=== PATIENT | male | born 1935 | race Caucasian/White ===

== ENCOUNTER 2017-01-08 16:20 | Inpatient (IN) ==
[2017-01-08] MEDS ORDERED: Pantoprazole 40 MG VIAL IVP ONE (17:27)
[2017-01-08] MEDS ORDERED: 0.9 % Sodium Chloride 1,000 ML IVC ONE ×2 (17:27→17:30)
--- NOTE | 2017-01-08 17:35 | Emergency Department Note ---
Disposition Clinical Impression: Dehydration, Esophageal pain, History of esophageal cancer Disposition: Admitted As Inpatient Condition: Fair Time of Disposition: 19:35 General Adult HPI - General Chief complaint: ED Abdominal Pain Stated complaint: " Not eating or drinking x 3 days" Time Seen by Provider: 01/08/17 16:25 Source: patient Limitations: no limitations Nursing Notes Reviewed: Yes Vital Signs Reviewed: Yes - History of Present Illness HPI Narrative: Patient is 81-year-old male history of esophageal cancer with recent radiation therapy to his esophagus 3 months ago. Patient family states that patient has not felt like eating for the past 2 days and is required to take 4 cans of ECAL. Patient refusing nutrient intake secondary to esophageal discomfort. Patient's states that patient vomited black fluid earlier today. Patient received his medications to include iron pill which normally looks dark and discussed up into his PEG tube. Patient currently has dark fluid in his PEG tube believed to be possible coffee-ground emesis. Patient states that he has not any pain at this moment. Patient states that he does fine. Patient does have some difficulty hearing secondary to his hearing aid issues. Pain Scale: 5 - Related Data Home Medications Medication Instructions Recorded Confirmed Aspirin Enteric Coated [Aspirin EC] 81 mg PO DAILY 11/12/15 01/09/17 Calcium Carbonate 650 mg PO DAILY 11/12/15 01/09/17 Clopidogrel [Plavix] 75 mg PO DAILY 11/12/15 01/09/17 Finasteride [Proscar] 5 mg PO DAILY 11/12/15 01/09/17 PredniSONE [Fiona] 5 mg PO DAILY 11/12/15 01/09/17 traMADol [Ultram] 100 mg PO TID 11/12/15 01/09/17 Albuterol Neb [Proventil Neb] 2.5 mg IH TID 12/17/15 01/09/17 Bisacodyl [Dulcolax] 5 mg PO DAILY PRN 12/17/15 01/09/17 Omeprazole/Sodium Bicarbonate 1 pack PO DAILY 12/17/15 01/09/17 [Zegerid 20 mg Packet] Budesonide/Formoterol 160/4.5 2 puff IH BIDR 01/09/17 01/09/17 [Symbicort 160/4.5] Clopidogrel [Plavix] 75 mg PO DAILY 01/09/17 01/09/17 Diclofenac Sodium [Voltaren] 2 gm TP QID PRN 01/09/17 01/09/17 Ferrous Sulfate Oral Soln 220 mg PO BID 01/09/17 01/09/17 Ondansetron ODT [Zofran ODT] 4 mg SL Q8HR PRN 01/09/17 01/09/17 Simvastatin [Zocor] 20 mg PO HS 01/09/17 01/09/17 Tamsulosin [Flomax] 0.4 mg PO DAILY 01/09/17 01/09/17 Allergies Allergy/AdvReac Type Severity Reaction Status Date / Time No Known Allergies Allergy Verified 01/08/17 16:23 All systems ED: reviewed and negative except as stated. Review of Systems: As Per HPI Constitutional: Denies: fever, weakness ENT ED: Reports: dysphagia. Denies: congestion Gastrointestinal: Reports: hematemesis. Denies: melena, hematochezia Genitourinary: Denies: urgency, dysuria Musculoskeletal: Denies: back pain Integumentary: Denies: rash Neurological: Reports: confusion Past Medical History - Past Medical History Attestation: Yes The following information was validated with the patient. Source: patient, obtained from family Medical history: Reports: arthritis, cancer, COPD, coronary artery disease, GERD , hyperlipidemia, hypertension Surgical history: Reports: carotid endarterectomy Psychiatric history: Reports: no psych history - Social History Smoking Status: Former smoker Smokeless Tobacco Status: No Alcohol use: Reports: none Drug use: Reports: none Physical Exam - General Limitations: no limitations General appearance: alert, in no apparent distress - Head Head exam: atraumatic, normocephalic, normal inspection - Eye Eye exam: Present: normal appearance, PERRL, EOMI - ENT ENT exam: mucous membranes dry, normal external ear exam (Hearing aid in place) , other (Very dry oropharynx with dark discolored material on the hard and soft palates) - Neck Neck exam: Present: normal inspection, full ROM, trachea midline - Respiratory Respiratory exam: Present: normal lung sounds bilaterally. Absent: respiratory distress, wheezes - Cardiovascular Cardiovascular exam: Present: tachycardia - Abdominal Exam Abdominal exam: Present: soft, Non-Tender, other (PEG tube in place upper left quadrant of abdomen black fluid in tube). Absent: tenderness, distention, guarding, rebound, rigidity - Extremities Exam Extremities exam: Present: normal inspection, full ROM. Absent: tenderness, pedal edema - Back Exam Back exam: Present: normal inspection, full ROM. Absent: tenderness, CVA tenderness (R), CVA tenderness (L) - Neurological Exam Neurological exam: Present: alert, oriented X3 - Skin Skin exam: Present: warm, dry, intact, normal color Course - Reevaluation(s) Reevaluation #1: Labs ordered: CBC BMP and lactate, occult blood tests from gastric tube ordered Protonix IV bolus and drip ordered patient currently denies pain. 2 L normal saline ordered for dehydration Time: 17:27 Reevaluation #2: Patient's heart rate coming down after 1 L IV normal saline. Patient's family states patient interactions are improving. Patient looks and appears more alert Time: 18:00 Reevaluation #3: Patient currently awaiting results of remaining labs and disposition. Patient' s care will be handed over to [employer] night crew. Dr. Power and Dr. Moon. SBAR has been given Dr. Power. Dr. Power understands and accepts care for patient. Patient currently continues to improve with IV rehydration. Discussion at bedside round with family has to consider admission to continue care get patient back on track with nutrition. Patient's family and patient understand and agrees to treatment plan Time: 18:55 - Consultations Consultation #1: Dr. Scott the hospitalist accepted the patient for admission Time: 19:35 Vital Signs Temperature 97.3 F L 01/08/17 16:24 Pulse Rate 122 01/08/17 16:24 Respiratory Rate 25 01/08/17 16:24 Blood Pressure 110/73 01/08/17 16:24 O2 Sat by Pulse Oximetry 94 01/08/17 16:24 Temperature 97.8 F 01/10/17 11:10 Pulse Rate 105 01/10/17 11:10 Respiratory Rate 17 01/10/17 11:10 Blood Pressure 120/70 01/10/17 11:10 O2 Sat by Pulse Oximetry 96 01/10/17 11:10 Oxygen Delivery Oxygen Delivery Room Air Medical Decision Making - MDM Narrative Medical decision making narrative: Patient has been admitted to continue rehydration and receive further treatment concerning patient's nutritional deficiencies, an investigation into patient's possible GI bleeding. Patient is currently doing well. Vitals normalizing. Awaiting analysis the patient's gastric tube fluid. Patient's cardiac enzymes have not been resulted as yet. Chest x-ray shows mild bibasilar interstitial edema That EKG does not show any signs of ischemia. Patient in the ED awaiting bed assignment. - Lab Data Lab results reviewed: Yes I reviewed the patient's lab results. Lab results narrative: Short CBC 01/08/17 Range/Units 17:45 WBC 13.7 H (4.3-11.1) K/mcL Hgb 14.2 (12.9-16.9) g/dL Hct 43.3 (37.5-50.1) % Plt Count 239 (140-400) K/mcL Neutrophils # 11.9 H (1.6-8.9) K/mcL BMP 01/08/17 Range/Units 17:45 Sodium 136 (136-145) mEq/L Potassium 4.3 (3.5-4.5) mEq/L Chloride 104 (98-109) mEq/L Carbon Dioxide 24 (19-29) mEq/L BUN 26 (8-26) mg/dL Creatinine 0.83 (0.72-1.25) mg/dL Glucose 115 H (70-99) mg/dL Calcium 8.9 (8.6-10.8) mg/dL Cardiac Enzymes 01/08/17 Range/Units 22:35 Troponin I 0.05 H* (0-0.03) ng/mL Result diagrams: 01/10/17 05:24 01/10/17 05:24 Lab Results 01/08/17 01/08/17 01/08/17 Range/Units 17:45 17:45 17:45 WBC 13.7 H (4.3-11.1) K/mcL RBC 4.87 (4.19-5.50) M/mcL Hgb 14.2 (12.9-16.9) g/dL Hct 43.3 (37.5-50.1) % MCV 88.9 (83.0-100.0) fL MCH 29.2 (28.0-33.3) pg MCHC 32.8 (31.6-35.5) g/dL RDW 14.2 (11.5-14.5) % Plt Count 239 (140-400) K/mcL MPV 10.8 (9.4-12.4) fL Immature Gran % 0.4 (0-4) % Seg Neutrophils % 86.7 % Lymphocytes % 5.8 % Monocytes % 6.6 % Eosinophils % 0.2 % Basophils % 0.3 % Neutrophils # 11.9 H (1.6-8.9) K/mcL Lymphocytes # 0.8 (0.6-4.6) K/mcL Monocytes # 0.9 (0.0-1.3) K/mcL Eosinophils # 0.0 (0.0-0.6) K/mcL Basophils # 0.0 (0.0-0.2) K/mcL Sodium 136 (136-145) mEq/L Potassium 4.3 (3.5-4.5) mEq/L Chloride 104 (98-109) mEq/L Carbon Dioxide 24 (19-29) mEq/L BUN 26 (8-26) mg/dL Creatinine 0.83 (0.72-1.25) mg/dL Est GFR ( Amer) > 60 (> 60) Est GFR (Non-Af Amer) > 60 (> 60) BUN/Creatinine Ratio 31 H (6-26) Glucose 115 H (70-99) mg/dL Calculated Osmolality 288 (280-300) Calcium 8.9 (8.6-10.8) mg/dL Troponin I (0-0.03) ng/mL Blood Type B POSITIVE Antibody Screen NEGATIVE 01/08/17 Range/Units 22:35 WBC (4.3-11.1) K/mcL RBC (4.19-5.50) M/mcL Hgb (12.9-16.9) g/dL Hct (37.5-50.1) % MCV (83.0-100.0) fL MCH (28.0-33.3) pg MCHC (31.6-35.5) g/dL RDW (11.5-14.5) % Plt Count (140-400) K/mcL MPV (9.4-12.4) fL Immature Gran % (0-4) % Seg Neutrophils % % Lymphocytes % % Monocytes % % Eosinophils % % Basophils % % Neutrophils # (1.6-8.9) K/mcL Lymphocytes # (0.6-4.6) K/mcL Monocytes # (0.0-1.3) K/mcL Eosinophils # (0.0-0.6) K/mcL Basophils # (0.0-0.2) K/mcL Sodium (136-145) mEq/L Potassium (3.5-4.5) mEq/L Chloride (98-109) mEq/L Carbon Dioxide (19-29) mEq/L BUN (8-26) mg/dL Creatinine (0.72-1.25) mg/dL Est GFR ( Amer) (> 60) Est GFR (Non-Af Amer) (> 60) BUN/Creatinine Ratio (6-26) Glucose (70-99) mg/dL Calculated Osmolality (280-300) Calcium (8.6-10.8) mg/dL Troponin I 0.05 H* (0-0.03) ng/mL Blood Type Antibody Screen - Radiology Data Radiology results reviewed: Yes I reviewed the patient's radiology results. Chest X-Ray 01/08/17 17:27 IMPRESSION: Possible mild bibasilar interstitial edema. D/ / Devang Gutierrez MD / Devang Gutierrez MD Interpreting Provider: Devang Gutierrez MD - EKG Data EKG #1 EKG attestation: Yes I reviewed and interpreted this EKG. EKG results narrative: EKG taken for January 2017 1854 hrs. shows a sinus tachycardia at a rate of 103 bpm with occasional supraventricular premature complexes noted acute ST elevations or depressions may leads no S1Q3 T3, no Brugada no Wellens no [place]. S.B.A.R. - S.B.A.R. Situation: Demographics, MOA Background: Presenting Complaint, Relevant PMH, Meds, & Allergies Assessment: Vital Signs, Course and respsone to treatment, Exam Concerns, Patient/Family Expectation, Pertinant Lab Results, Outstanding Labs Recommendation: Barrier(s) to disposition, Recommendation based on pending studies, treatments, or consults S.B.A.R. Report Given to: Dr. Ruben Lynch Repor Time: 18:55 Attestation Statement - Attestation Attestation: I examined this patient and my medical decision-making was reviewed with the Resident Physician. I agree with the documented findings, disposition and treatment plan as described.
[2017-01-08 17:52] LABS: Basophils % 0.3 %; Eosinophils % 0.2 %; Hematocrit 43.3 % (37.5-50.1); Hemoglobin 14.2 g/dL (12.9-16.9); Immature Granulocytes % 0.4 % (0-4); Lymphocytes # 0.8 K/mcL (0.6-4.6); Lymphocytes % 5.8 %; Mean Corpuscular HGB Conc 32.8 g/dL (31.6-35.5); Mean Corpuscular Hemoglobin 29.2 pg (28.0-33.3); Mean Corpuscular Volume 88.9 fL (83.0-100.0); Mean Platelet Volume 10.8 fL (9.4-12.4); Monocytes # 0.9 K/mcL (0.0-1.3); Monocytes % 6.6 %; Neutrophils # 11.9 K/mcL (1.6-8.9); Platelet Count 239 K/mcL (140-400); Red Blood Count 4.87 M/mcL (4.19-5.50); Red Cell Distribution Width 14.2 % (11.5-14.5); Segmented Neutrophils % 86.7 %
[2017-01-08 18:04] LABS: BUN/Creatinine Ratio 31 (6-26); Blood Urea Nitrogen 26 mg/dL (8-26); Calcium 8.9 mg/dL (8.6-10.8); Carbon Dioxide 24 mEq/L (19-29); Chloride 104 mEq/L (98-109); Glucose 115 mg/dL (70-99); Osmolality,Calculated 288 (280-300); Potassium 4.3 mEq/L (3.5-4.5); Sodium 136 mEq/L (136-145); eGFR For African Americans > 60 (> 60); eGFR For Non-African Americans > 60 (> 60)
[2017-01-08] MEDS: Pantoprazole 40 MG in 0.9 % Sodium Chloride Mini Bag 100 ML IVC SCH ×2 (18:05→23:50)
[2017-01-08] MEDS ORDERED: Ondansetron 4 MG/2 ML VIAL IVP PRN (21:55)
[2017-01-08] MEDS ORDERED: Albuterol 2.5 MG/3 ML NEBULIZER IH PRN (21:55)
[2017-01-08] MEDS ORDERED: Acetaminophen 325 MG TABLET PO PRN (21:57)
[2017-01-08] MEDS ORDERED: Naloxone 0.4 MG/ML INJ IVP PRN (21:57)
[2017-01-08] MEDS ORDERED: MOM Conc 10 ML UD.LIQ PO PRN (21:57)
[2017-01-08] MEDS ORDERED: Nystatin SUSP 5 ML UD.LIQ PO SCH (22:00)
--- NOTE | 2017-01-08 22:06 | Internal Med History&Physical ---
Date of Encounter: 01/09/17 Time of Encounter: 22:04 Assessment and Plan (1) Odynophagia Current visit: Yes Status: Acute Patient had radiation therapy for his esophageal cancer. He is unable to swallow. However he does have bacterial. Suspicion for radiation esophagitis. Patient is on supportive treatment and will put a consult for gastroenterology in the morning team has to call business travel consultant at appropriate time. IV proton started (2) GI bleed Current visit: Yes Status: Acute Bacteria showed coffee-ground fluid however it was not Hemoccult tested in the ER I will order Hemoccult and check his hemoglobin in the morning. He is on IV Protonix and will remain nothing by mouth. Qualifiers: GI bleed type/associated pathology: unspecified gastrointestinal hemorrhage type Qualified Code(s): K92.2 - Gastrointestinal hemorrhage, unspecified (3) Bilateral pneumonia Current visit: Yes Status: Acute Chest x-ray shows bilateral infiltrates however seemed quite inconspicuous secondary to dehydration. White count is mildly elevated. It could be a chronic finding or may be related to his radiation treatment to esophageal cancer. At this time blood culture obtained and Zosyn will be started. It has to be reassess by the [facility] Qualifiers: Pneumonia type: due to unspecified organism Lung location: lower lobe of lung Qualified Code(s): J18.9 - Pneumonia, unspecified organism (4) Dehydration Current visit: Yes Status: Acute IV fluid 100 mL per hour was started (5) Altered mental status Current visit: Yes Status: Acute Perhaps related to dehydration and pneumonia. Will check CT head to rule out bleed as family is quite concerned. Qualifiers: Qualified Code(s): R41.82 - Altered mental status, unspecified (6) Esophageal cancer Current visit: Yes Status: Acute History of esophageal cancer and recent radiation treatment last 3 months the plan per oncology Qualifiers: Malignant neoplasm of esophagus location: unspecified location Qualified Code(s): C15.9 - Malignant neoplasm of esophagus, unspecified (7) COPD (chronic obstructive pulmonary disease) Current visit: Yes Status: Acute DuoNeb started as well as Mucinex Qualifiers: COPD type: emphysema Emphysema type: unspecified Qualified Code(s): J43.9 - Emphysema, unspecified (8) Hypertension Current visit: Yes Status: Acute Resume medication and daily monitoring Qualifiers: Hypertension type: essential hypertension Qualified Code(s): I10 - Essential (primary) hypertension (9) Dyslipidemia Current visit: Yes Status: Acute Resume home medication (10) GERD (gastroesophageal reflux disease) Current visit: Yes Status: Acute IV Protonix is started Qualifiers: Esophagitis presence: esophagitis presence not specified Qualified Code(s) : K21.9 - Gastro-esophageal reflux disease without esophagitis (11) Coronary artery disease Current visit: Yes Status: Acute Continue home medication at this time quite stable not complaining of chest pain Qualifiers: Coronary Disease-Associated Artery/Lesion type: [place] artery [place] vs. transplanted heart: [place] heart Associated angina: without angina Qualified Code(s): I25.10 - Atherosclerotic heart disease of [place] coronary artery without angina pectoris Internal Medicine - H&P: HPI Chief complaint: Altered mental status Admitted From: Home Plans for Post Hospital Care: Home History of present illness: Mr. Garcia is a 81 year old male with past medical history of esophageal cancer with recent radiation therapy to his esophagus 3 months ago. Patient family states that patient has not felt like eating for the past 2 days and is required to take 4 cans of ECAL daily but he has taken only 2 cans.. Patient would indicate that it hurts in his chest. Patient's states that patient vomited black fluid earlier today. Patient received his medications to include iron pill which normally looks dark. Patient currently has dark fluid in his PEG tube believed to be possible coffee-ground emesis. Patient states that he has not any pain at this moment. Patient states that he does fine. Patient does have some difficulty hearing secondary to his hearing aid issues. He does appear quite confused. However he moves his extremities well. He denies any abdominal pain. Past Med Surg Social Fam HX - Past Medical History Medical history: arthritis, cancer, COPD, coronary artery disease, GERD, hyperlipidemia, hypertension, other Psychiatric history: no psych history - Past Surgical History Surgical History: carotid endarterectomy - Social History Smoking Status: Former smoker Smokeless Tobacco Status: No Alcohol use: none Drug use: none Internal Medicine - H&P: Meds Aspirin Enteric Coated [Aspirin EC] 81 mg PO DAILY 11/12/15 [History] Calcium Carbonate 650 mg PO DAILY 11/12/15 [History] Clopidogrel [Plavix] 75 mg PO DAILY 11/12/15 [History] Codeine Harvinder/Chlorphenir Polis [Tuzistra Xr 14.7-2.8 mg/5 ml] 5 ml PO TID [History] Ergocalciferol (VITAMIN D2) [Vitamin D] 800 unit PO DAILY 11/12/15 [History] Finasteride [Proscar] 5 mg PO DAILY 11/12/15 [History] Fluticasone Propionate Nasal [Flonase] 1 spray NS DAILY 11/12/15 [History] Lisinopril [Zestril] 40 mg PO DAILY 11/12/15 [History] Methocarbamol [Robaxin] 750 mg PO Q4H 11/12/15 [History] Nystatin [Nystatin Suspension] 10 ml PO QID 11/12/15 [History] PredniSONE [Fiona] 5 mg PO DAILY 11/12/15 [History] Prochlorperazine Maleate [Compazine] 10 mg PO BID PRN 11/12/15 [History] Simvastatin [Zocor] 80 mg PO QPM 11/12/15 [History] traMADol [Ultram] 50 mg PO TID 11/12/15 [History] Albuterol Neb [Proventil Neb] 2.5 mg IH TID 12/17/15 [History] Bisacodyl [Dulcolax] 5 mg PO DAILY PRN 12/17/15 [History] Ergocalciferol (VITAMIN D2) [Vitamin D2 (50,000 UNIT)] 50,000 unit PO QWEEK 04/21 [History] Omeprazole/Sodium Bicarbonate [Zegerid 20 mg Packet] 1 pack PO DAILY 12/17/15 [ History] Terazosin [Hytrin] 5 mg PO HS 12/17/15 [History] 3 Allergy/AdvReac Type Severity Reaction Status Date / Time No Known Allergies Allergy Verified 01/08/17 16:23 All Systems PM: A 10-system review of systems was performed and is negative for pertinent findings except as documented above in the HPI. - Constitutional Constitutional: no chills, no fever(s), no night sweats - EENT Eyes: no change in vision, no discharge, no pain, no photophobia Ears: no ear discharge, no ear pain, no tinnitus Nose, mouth and throat: no dysphagia, no nasal discharge, no neck pain, no sore throat - Cardiovascular Cardiovascular ROS IM: no chest pain, no diaphoresis, no dyspnea, no lightheadedness, no palpitations, no syncope - Respiratory Respiratory: no cough, no dyspnea, no wheezing, no excessive phlegm production - Gastrointestinal Gastrointestinal: hematemesis, odynophagia, no abdominal pain, no diarrhea, no hematochezia, no melena, no nausea, no vomiting - Musculoskeletal Musculoskeletal ROS IM: no numbness, no tingling - Integumentary Integumentary IM: no rash, no unusual bruising - Neurological Neurological ROS: confusion, no convulsions, no focal weakness, no numbness, no tingling, no tremor(s) - Hematologic/Lymphatic Hematologic/Lymphatic: no easy bruising - Constitutional Vitals: Temp Pulse Resp BP Pulse Ox 97.8 F 102 18 125/72 98 01/08/17 21:31 01/08/17 21:31 01/08/17 21:31 01/08/17 21:31 01/08/17 21:31 General appearance: Present: A&O X 1, no acute distress - Head Head exam: Present: atraumatic, normocephalic - Eye Eye exam: Present: PERRL, conjuntiva pink, sclera anicteric Pupils: Present: PERRL - Neck Neck exam general surgery: Present: supple, trachea midline. Absent: lymphadenopathy - Respiratory Respiratory exam: Present: CTAB. Absent: accessory muscle use, rales, rhonchi, wheezes - Cardiovascular Cardiovascular exam: Present: RRR, +S1, +S2. Absent: diastolic murmur, gallop, rubs, systolic murmur - GI/Abdominal GI/Abdominal exam: Present: normal bowel sounds, soft, tenderness, no peritoneal signs. Absent: distended - Extremities Exam Extremities exam: Present: warm, radial pulses palpable and symmetrical. Absent : calf tenderness, cyanotic, pedal edema - Neurological Exam Neurological exam: Absent: pronater drift, facial droop, speech deficit Additional comments: Patient appeared confused however he is moving all 4 extremities and able to, talk - Skin Skin exam: Present: dry, intact Internal Med - H&P Results - Labs CBC & Chem 7: 01/08/17 17:45 01/08/17 17:45
[2017-01-08] MEDS: Ipratropium/Albuterol Neb 3 ML IH SCH (23:20)
[2017-01-08] MEDS: 0.9 % Sodium Chloride 1,000 ML IVC SCH (23:46)
[2017-01-08] MEDS: Piperacillin/Tazobactam 3.375 GM in D5% in Water (Mini-Bag+) 100 ML IVPB SCH (23:47)
[2017-01-09] MEDS: Fluticasone Propionate Nasal 50 MCG/SPRAY BOTTLE NS SCH ×2 (00:20→10:24)
[2017-01-09] MEDS ORDERED: Docusate Oral Soln 100 MG/10 ML UDC GTUBE PRN (01:43)
[2017-01-09] MEDS ORDERED: MOM Conc 10 ML UD.LIQ GTUBE PRN (01:45)
[2017-01-09] MEDS ORDERED: *HR* LORazepam 2 MG/ML VIAL IVP ONE (05:18)
[2017-01-09] MEDS: Ipratropium/Albuterol Neb 3 ML IH SCH ×4 (05:42→22:29)
[2017-01-09] MEDS: Pantoprazole 40 MG in 0.9 % Sodium Chloride Mini Bag 100 ML IVC SCH ×2 (06:39→08:26)
[2017-01-09] MEDS: Piperacillin/Tazobactam 3.375 GM in D5% in Water (Mini-Bag+) 100 ML IVPB SCH ×2 (08:15→16:44)
[2017-01-09] MEDS ORDERED: CHLORPHENIRAMINE PO SCH (09:00)
[2017-01-09] MEDS ORDERED: [UNRECOGNIZED DRUG - OTHER] PO SCH (09:00)
[2017-01-09] MEDS: Nystatin SUSP 5 ML UD.LIQ GTUBE SCH ×4 (10:22→21:41)
[2017-01-09] MEDS: GuaiFENesin Liq 200 MG/10 ML UDC GTUBE SCH ×2 (10:23→21:41)
[2017-01-09] MEDS: Cholecalciferol (D-3) 1,000 UNIT TABLET PO SCH (10:23)
[2017-01-09] MEDS: Finasteride 5 MG TABLET PO SCH (10:23)
[2017-01-09] MEDS: Lisinopril 20 MG TABLET GTUBE SCH (10:23)
[2017-01-09] MEDS: predniSONE 5 MG TABLET GTUBE SCH (10:23)
[2017-01-09] MEDS: 0.9 % Sodium Chloride 1,000 ML IVC SCH ×2 (12:55→22:34)
--- NOTE | 2017-01-09 15:34 | Internal Med Progress Note ---
Date of Encounter: 01/09/17 Time of Encounter: 15:33 - Assessment and plan (1) GI bleed Current Visit: Yes Status: Acute Assessment and plan: mostly upper GI bleed Improving cont close monitoring of Hb He refused morning labs Consulted GI for further eval -- possible EGD Con Protonix 40mg IV BID for now Con strict NPO Qualifiers: GI bleed type/associated pathology: unspecified gastrointestinal hemorrhage type Qualified Code(s): K92.2 - Gastrointestinal hemorrhage, unspecified (2) Bilateral pneumonia Current Visit: Yes Status: Acute Assessment and plan: Reviewed his CXR - showing patchy infiltrates b/l mostly aspiration pneumonia strict aspiration precautions cont empirical abx with Zosyn for now Duoneb PRN Qualifiers: Pneumonia type: due to unspecified organism Lung location: lower lobe of lung Qualified Code(s): J18.9 - Pneumonia, unspecified organism (3) Altered mental status Current Visit: Yes Status: Acute Assessment and plan: multi factorial - due to PNA , Dehydration and GI bleed Also concerned for worsening dementia too reviewed CT of head - no acute changes Con close monitoring for now avoid BZD will give him Haldol PRN for agitation started him on seroquel Qualifiers: Qualified Code(s): R41.82 - Altered mental status, unspecified (4) Esophageal cancer Current Visit: Yes Status: Acute Assessment and plan: s/p radiation therapy cont close monitoring for now GI on board.. possible EGD later Qualifiers: Malignant neoplasm of esophagus location: unspecified location Qualified Code(s): C15.9 - Malignant neoplasm of esophagus, unspecified (5) COPD (chronic obstructive pulmonary disease) Current Visit: Yes Status: Chronic Assessment and plan: not in exacerbation resumed home meds Qualifiers: COPD type: emphysema Emphysema type: unspecified Qualified Code(s): J43.9 - Emphysema, unspecified (6) Hypertension Current Visit: Yes Status: Acute Assessment and plan: stale with home meds Qualifiers: Hypertension type: essential hypertension Qualified Code(s): I10 - Essential (primary) hypertension (7) GERD (gastroesophageal reflux disease) Current Visit: Yes Status: Acute Qualifiers: Esophagitis presence: esophagitis presence not specified Qualified Code(s) : K21.9 - Gastro-esophageal reflux disease without esophagitis (8) Coronary artery disease Current Visit: Yes Status: Acute Assessment and plan: on PPI Qualifiers: Coronary Disease-Associated Artery/Lesion type: [place] artery [place] vs. transplanted heart: [place] heart Associated angina: without angina Qualified Code(s): I25.10 - Atherosclerotic heart disease of [place] coronary artery without angina pectoris - Subjective Interval history: Mr. Garcia is a 81 year old male with past medical history of esophageal cancer with recent radiation therapy to his esophagus 3 months ago. Patient family states that patient has not felt like eating for the past 2 days and is required to take 4 cans of ECAL daily but he has taken only 2 cans.. Patient would indicate that it hurts in his chest. Patient's states that patient vomited black fluid earlier today. Patient received his medications to include iron pill which normally looks dark. Patient currently has dark fluid in his PEG tube believed to be possible coffee-ground emesis. Pt is more alert, awake and Oriented to self now. Following all the commands. No more hematemesis noticed.. Denied any CP / SOB / Abd pain. - Constitutional Vitals: Temp Pulse Resp BP Pulse Ox 97.7 F 90 17 125/74 98 01/09/17 14:50 01/09/17 14:50 01/09/17 14:50 01/09/17 14:50 01/09/17 14:50 General appearance: Present: A&O X 1, no acute distress - Head Head exam: Present: atraumatic, normal inspection - Respiratory Respiratory exam: Present: decreased breath sounds, wheezes. Absent: rales, respiratory distress, rhonchi - Cardiovascular Cardiovascular exam: Present: RRR, +S1, +S2. Absent: diastolic murmur, gallop, rubs, systolic murmur - GI/Abdominal GI/Abdominal exam: Present: normal bowel sounds, soft. Absent: distended, rebound, rigid, tenderness Additional comments: PEG tube + LUQ region - Extremities Exam Extremities exam: Absent: calf tenderness, pedal edema, tenderness - Neurological Exam Neurological exam: Present: alert, altered - Psychiatric Psychiatric exam: Present: anxious Internal Medicine: Result - Labs CBC & Chem 7: 01/08/17 17:45 01/08/17 17:45 - Impressions Impressions Head CT 01/09/17 12:00 IMPRESSION: Nonspecific findings suggesting chronic ischemic and senescent change, but no CT evidence for acute intracranial process. D/ / Victorino Beckett / Victorino Beckett Interpreting Provider: Victorino Beckett Consult Discharge Plan - Plan [facility]errals: [facility]Primary Care Provider[facility] -
[2017-01-09] MEDS ORDERED: Haloperidol Oral Conc 10 MG/5 ML UDC GTUBE PRN (15:42)
--- NOTE | 2017-01-09 17:56 | Gastroenterology Consult Note ---
Date of Encounter: 01/09/17 Time of Encounter: 16:00 - Time Spent With Patient Total time spent is greater than 50% in coordination of care (as documented) at patient's floor/unit and/or counseling patient: GI History of Present Illness - Data of Consult Requesting Physician: Noman June MD - Consult Narrative Reason for consult: DYSPHAGIA, ESOPHAGEAL CANCER History of present illness: Mr. Garcia is a 81 year old male who presents with dysphagia and dehydration. Patient is a very poor historian and I am unable to reach his daughter, Urmila. He has been diagnosed with adenocarcinoma of the esophagus and am not able to verify any further information. Will request records from the institution where he was diagnosed and managed so far. Further recommendations post review of that as well as after conversing with his daughter, Urmila Past Med Surg Social Fam HX - Past Medical History Medical history: arthritis, cancer, COPD, coronary artery disease, GERD, hyperlipidemia, hypertension Psychiatric history: no psych history - Past Surgical History Surgical History: carotid endarterectomy - Social History Smoking Status: Former smoker Smokeless Tobacco Status: No Alcohol use: none Drug use: none ROS unobtainable: due to mental status - Constitutional Vitals: Temp Pulse Resp BP Pulse Ox 97.7 F 90 12 125/74 97 01/09/17 14:50 01/09/17 14:50 01/09/17 15:48 01/09/17 14:50 01/09/17 15:48 General appearance: Present: cachectic, A&O X 2 - Head Head exam: Present: atraumatic, normocephalic - Neurological Exam Neurological exam: Present: alert, no focal deficits - Psychiatric Psychiatric exam: Present: depressed, normal affect, normal mood Results - Labs CBC & Chem 7: 01/11/17 04:40 01/11/17 04:40 Labs: Last Result Calcium 8.9 mg/dL (8.6-10.8) 01/08/17 17:45 Troponin I 0.05 ng/mL (0-0.03) H* 01/08/17 22:35 Gastric Occult Blood Positive (Negative) A 01/09/17 00:05 Entire Visit Hgb 14.2 g/dL (12.9-16.9) 01/08/17 17:45 Hct 43.3 % (37.5-50.1) 01/08/17 17:45 - Impressions Impressions Head CT 01/09/17 12:00 IMPRESSION: Nonspecific findings suggesting chronic ischemic and senescent change, but no CT evidence for acute intracranial process. D/ / Victorino Beckett / Victorino Beckett Interpreting Provider: Victorino Beckett Consult Discharge Plan - Plan Additional Instructions: Need to f/u with PCP in one week Need to f/u GI Dr. Sanchez in 1-2 weeks Cont tube feedings as before boluses 4 times a day Referrals: [facility] [Outside] Anastacia Sanchez MD [Partnered Physician] - Prescriptions: Amoxicillin/Clavulanate [Augmentin] 875 mg PO BIDWM 4 Days
[2017-01-09] MEDS: Pantoprazole 40 MG VIAL IVP SCH (18:38)
[2017-01-10] MEDS: Piperacillin/Tazobactam 3.375 GM in D5% in Water (Mini-Bag+) 100 ML IVPB SCH ×4 (00:03→23:51)
[2017-01-10] MEDS: Ipratropium/Albuterol Neb 3 ML IH SCH ×2 (05:06→10:59)
[2017-01-10] MEDS: Pantoprazole 40 MG VIAL IVP SCH ×2 (05:37→17:32)
[2017-01-10 05:51] LABS: Basophils % 0.5 %; Eosinophils # 0.1 K/mcL (0.0-0.6); Eosinophils % 2.2 %; Hematocrit 31.6 % (37.5-50.1); Immature Granulocytes % 0.3 % (0-4); Lymphocytes % 19.2 %; Mean Corpuscular HGB Conc 32.6 g/dL (31.6-35.5); Mean Corpuscular Hemoglobin 29.1 pg (28.0-33.3); Mean Corpuscular Volume 89.3 fL (83.0-100.0); Mean Platelet Volume 10.8 fL (9.4-12.4); Monocytes # 0.6 K/mcL (0.0-1.3); Monocytes % 8.7 %; Neutrophils # 4.5 K/mcL (1.6-8.9); Platelet Count 152 K/mcL (140-400); Red Blood Count 3.54 M/mcL (4.19-5.50); Red Cell Distribution Width 14.4 % (11.5-14.5); Segmented Neutrophils % 69.1 %
[2017-01-10 05:57] LABS: Hemoglobin 10.3 g/dL (12.9-16.9); Lymphocytes # 1.3 K/mcL (0.6-4.6)
[2017-01-10 06:00] LABS: BUN/Creatinine Ratio 18 (6-26); Carbon Dioxide 23 mEq/L (19-29); Chloride 108 mEq/L (98-109); Glucose 91 mg/dL (70-99); Magnesium 1.5 mg/dL (1.6-2.6); Osmolality,Calculated 284 (280-300); Potassium 3.5 mEq/L (3.5-4.5); Sodium 137 mEq/L (136-145); eGFR For African Americans > 60 (> 60); eGFR For Non-African Americans > 60 (> 60)
[2017-01-10 06:01] LABS: Blood Urea Nitrogen 13 mg/dL (8-26)
[2017-01-10] MEDS: Nystatin SUSP 5 ML UD.LIQ GTUBE SCH ×4 (08:42→21:36)
[2017-01-10] MEDS: Finasteride 5 MG TABLET PO SCH (08:42)
[2017-01-10] MEDS: GuaiFENesin Liq 200 MG/10 ML UDC GTUBE SCH ×2 (08:42→21:39)
[2017-01-10] MEDS: Cholecalciferol (D-3) 1,000 UNIT TABLET PO SCH (08:42)
[2017-01-10] MEDS: Lisinopril 20 MG TABLET GTUBE SCH (08:42)
[2017-01-10] MEDS: predniSONE 5 MG TABLET GTUBE SCH (08:42)
[2017-01-10] MEDS: 0.9 % Sodium Chloride 1,000 ML IVC SCH ×2 (09:01→19:28)
[2017-01-10] MEDS ORDERED: Ipratropium/Albuterol Neb 3 ML IH PRN (11:10)
[2017-01-10] MEDS: Fluticasone Propionate Nasal 50 MCG/SPRAY BOTTLE NS SCH (11:24)
--- NOTE | 2017-01-10 12:05 | Gastroenterology Consult Note ---
<Jayesh Vyas - Last Filed: 01/10/17 12:03> Date of Encounter: 01/10/17 Time of Encounter: 11:00 - Assessment and plan (1) Odynophagia Current Visit: Yes Status: Acute Assessment and plan: Plan for EGD tomorrow to r/o esophagitis, gastritis, duodenitis, PUD, MW tear, or AVM. Keep NPO at midnight. (2) GI bleed Current Visit: Yes Status: Acute Assessment and plan: Continue to monitor CBC and transfuse PRBC as needed. EGD tomorrow to r/o esophagitis, gastritis, duodenitis, PUD, MW tear, or AVM. Qualifiers: GI bleed type/associated pathology: unspecified gastrointestinal hemorrhage type Qualified Code(s): K92.2 - Gastrointestinal hemorrhage, unspecified (3) Esophageal cancer Current Visit: Yes Status: Acute Qualifiers: Malignant neoplasm of esophagus location: unspecified location Qualified Code(s): C15.9 - Malignant neoplasm of esophagus, unspecified (4) Esophageal pain Current Visit: Yes Status: Acute Assessment and plan: Secondary to esophageal cancer - Time Spent With Patient Total time spent is greater than 50% in coordination of care (as documented) at patient's floor/unit and/or counseling patient: GI History of Present Illness - Data of Consult Patient: known to practice within the last 3 years Consult date: 01/10/17 Requesting Physician: Noman June MD - Consult Narrative Reason for consult: Dysphagia, hematemesis, history of esophageal cancer History of present illness: Mr. Garcia is a 81 year old male with PMHx of esophageal cancer with radiation therapy to his esophagus 3 months, COPD, CAD, GERD, HLD, HTN. Patient family states that patient has not felt like eating for the past 2 days and is required to take 4 cans of ECAL but has only taken 2 cans. Patient refusing nutrient intake secondary to esophageal discomfort. Patient's states that patient vomited black fluid prior to admission. Patient received his medications which included an iron pill which normally looks dark. Patient currently has dark fluid in his PEG tube believed to be possible coffee-ground emesis. Procedure: EGD 08/11/2016 Dr. Harvey: With the large fungating, partially obstructing mass in the lower third of the esophagus. PEG tube placed. EGD 12/17/2015 Dr. Mooney: Malignant appearing esophageal stenosis, intact G- tube. EGD 11/22/2015 Dr. Mooney: Nonbleeding esophageal ulcers, malignant appearing esophageal stenosis. NSAIDs: ASA Anticoagulation: Plavix Past Med Surg Social Fam HX - Past Medical History Medical history: arthritis, cancer, COPD, coronary artery disease, GERD, hyperlipidemia, hypertension Psychiatric history: no psych history - Past Surgical History Surgical History: carotid endarterectomy - Social History Smoking Status: Former smoker Smokeless Tobacco Status: No Alcohol use: none Drug use: none - Gastrointestinal Gastrointestinal: Present: as per HPI - Constitutional Constitutional: as per HPI - EENT Eyes: as per HPI Ears: Present: as per HPI Nose, mouth and throat: Present: as per HPI - Cardiovascular Cardiovascular ROS: Present: as per HPI - Respiratory Respiratory IM: Present: as per HPI - Genitourinary Genitourinary: Absent: change in color, Urinary frequency - Neurological ROS Neurological GI: Present: as per HPI - Hematologic/Lymphatic Hematologic/Lymphatic pediatric: Present: as per HPI - Musculoskeletal Musculoskeletal ROS GI: Present: as per HPI - Integumentary Integumentary GI: Present: as per HPI - Psychiatric ROS Psychiatric GI: Present: as per HPI - Endocrine Endocrine IM: Present: as per HPI - Constitutional Vitals: Temp Pulse Resp BP Pulse Ox 97.8 F 105 17 120/70 96 01/10/17 11:10 01/10/17 11:10 01/10/17 11:10 01/10/17 11:10 01/10/17 11:10 General appearance: Present: cooperative, A&O X 3, no acute distress, answers questions appropriately - Head Head exam: Present: atraumatic, normocephalic - Eye Eye exam: Present: normal appearance, sclera anicteric - ENT ENT exam: Present: mucous membranes dry - Neck Neck exam general surgery: Present: normal inspection, trachea midline - Respiratory Respiratory exam: Present: decreased breath sounds, wheezes - Cardiovascular Cardiovascular exam: Present: RRR, +S1, +S2 - GI/Abdominal GI/Abdominal exam: Present: soft, no peritoneal signs. Absent: distended, firm , guarding, tenderness Additional comments: PEG tube in place - Rectal Rectal exam: Present: deferred - Extremities Exam Extremities exam: Present: warm - Neurological Exam Neurological exam: Present: no focal deficits - Psychiatric Psychiatric exam: Present: normal affect, normal mood - Skin Skin exam: Present: dry, intact, normal color, warm Results - Labs CBC & Chem 7: 01/10/17 05:24 01/10/17 05:24 Labs: Last Result Calcium 8.0 mg/dL (8.6-10.8) L 01/10/17 05:24 Troponin I 0.05 ng/mL (0-0.03) H* 01/08/17 22:35 Gastric Occult Blood Positive (Negative) A 01/09/17 00:05 Entire Visit Hgb 10.3 g/dL (12.9-16.9) L D 01/10/17 05:24 Hct 31.6 % (37.5-50.1) L 01/10/17 05:24 - Impressions Impressions Head CT 01/09/17 12:00 IMPRESSION: Nonspecific findings suggesting chronic ischemic and senescent change, but no CT evidence for acute intracranial process. D/ / Victorino Beckett / Victorino Beckett Interpreting Provider: Victorino Beckett Consult Discharge Plan - Plan [facility] Provider[facility] - <Anastacia Sanchez - Last Filed: 01/10/17 17:40> Date of Encounter: 01/10/17 Time of Encounter: 17:00 - Time Spent With Patient Total time spent is greater than 50% in coordination of care (as documented) at patient's floor/unit and/or counseling patient: GI History of Present Illness - Data of Consult Requesting Physician: Noman June MD - Consult Narrative History of present illness: Mr. Garcia is a 81 year old male - Constitutional Vitals: Temp Pulse Resp BP Pulse Ox 98.2 F 95 15 123/73 97 01/10/17 14:42 01/10/17 14:42 01/10/17 14:42 01/10/17 14:42 01/10/17 14:42 Results - Labs CBC & Chem 7: 01/10/17 05:24 01/10/17 05:24 Labs: Last Result Calcium 8.0 mg/dL (8.6-10.8) L 01/10/17 05:24 Troponin I 0.05 ng/mL (0-0.03) H* 01/08/17 22:35 Gastric Occult Blood Positive (Negative) A 01/09/17 00:05 Entire Visit Hgb 10.3 g/dL (12.9-16.9) L D 01/10/17 05:24 Hct 31.6 % (37.5-50.1) L 01/10/17 05:24 - Attending Attestation I examined this patient and my medical decision-making was reviewed with the Resident Physician. I agree with the documented findings, disposition and treatment plan as described except to the extent set forth below. Odynophagia most probably due to radiation-induced esophagitis but rule out other etiologies including infectious esophagitis
--- NOTE | 2017-01-10 14:35 | Electrocardiograph Report ---
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
[2017-01-10] MEDS ORDERED: Magnesium Sulfate 2 GM in D5% in Water 100 ML IVPB ONE (16:54)
--- NOTE | 2017-01-10 17:08 | Internal Med Progress Note ---
Date of Encounter: 01/10/17 Time of Encounter: 17:05 - Assessment and plan (1) GI bleed Current Visit: Yes Status: Acute Assessment and plan: mostly upper GI bleed Improving Hb dropped down to 10.3 No need of transfusion yet GI is on board..scheduled for EGD in AM Con Protonix 40mg IV BID for now Speech cleared him for soft textures and thin liquids Qualifiers: GI bleed type/associated pathology: unspecified gastrointestinal hemorrhage type Qualified Code(s): K92.2 - Gastrointestinal hemorrhage, unspecified (2) Bilateral pneumonia Current Visit: Yes Status: Acute Assessment and plan: Reviewed his CXR - showing patchy infiltrates b/l mostly aspiration pneumonia -- super imposed with bacterial strict aspiration precautions cont empirical abx with Zosyn for now Duoneb PRN Qualifiers: Pneumonia type: due to unspecified organism Lung location: lower lobe of lung Qualified Code(s): J18.9 - Pneumonia, unspecified organism (3) Altered mental status Current Visit: Yes Status: Acute Assessment and plan: multi factorial - due to PNA , Dehydration and GI bleed Also concerned for worsening dementia too reviewed CT of head - no acute changes Con close monitoring for now avoid BZD On Haldol PRN for agitation started him on seroquel Qualifiers: Qualified Code(s): R41.82 - Altered mental status, unspecified (4) Esophageal cancer Current Visit: Yes Status: Acute Assessment and plan: s/p radiation therapy cont close monitoring for now GI on board.. possible EGD later Qualifiers: Malignant neoplasm of esophagus location: unspecified location Qualified Code(s): C15.9 - Malignant neoplasm of esophagus, unspecified (5) COPD (chronic obstructive pulmonary disease) Current Visit: Yes Status: Chronic Assessment and plan: not in exacerbation resumed home meds Qualifiers: COPD type: emphysema Emphysema type: unspecified Qualified Code(s): J43.9 - Emphysema, unspecified (6) Hypertension Current Visit: Yes Status: Acute Assessment and plan: stale with home meds Qualifiers: Hypertension type: essential hypertension Qualified Code(s): I10 - Essential (primary) hypertension (7) GERD (gastroesophageal reflux disease) Current Visit: Yes Status: Acute Qualifiers: Esophagitis presence: esophagitis presence not specified Qualified Code(s) : K21.9 - Gastro-esophageal reflux disease without esophagitis (8) Coronary artery disease Current Visit: Yes Status: Acute Assessment and plan: on PPI Qualifiers: Coronary Disease-Associated Artery/Lesion type: [place] artery [place] vs. transplanted heart: [place] heart Associated angina: without angina Qualified Code(s): I25.10 - Atherosclerotic heart disease of [place] coronary artery without angina pectoris - Subjective Interval history: Mr. Garcia is a 81 year old male with past medical history of esophageal cancer with recent radiation therapy to his esophagus 3 months ago. Patient family states that patient has not felt like eating for the past 2 days and is required to take 4 cans of ECAL daily but he has taken only 2 cans.. Patient would indicate that it hurts in his chest. Patient's states that patient vomited black fluid earlier today. Patient received his medications to include iron pill which normally looks dark. Patient currently has dark fluid in his PEG tube believed to be possible coffee-ground emesis. Pt is more alert, awake and Oriented to place, person. Following all the commands, answered all the questions. No more hematemesis noticed.. Denied any CP / SOB / Abd pain. He does c/o cough with no expectoration - Constitutional Vitals: Temp Pulse Resp BP Pulse Ox 98.2 F 95 15 123/73 97 01/10/17 14:42 01/10/17 14:42 01/10/17 14:42 01/10/17 14:42 01/10/17 14:42 General appearance: Present: A&O X 2, no acute distress - Head Head exam: Present: atraumatic, normal inspection - Respiratory Respiratory exam: Present: decreased breath sounds, wheezes. Absent: rales, respiratory distress, rhonchi - Cardiovascular Cardiovascular exam: Present: RRR, +S1, +S2. Absent: systolic murmur - GI/Abdominal GI/Abdominal exam: Present: normal bowel sounds, soft. Absent: rebound, rigid, tenderness Additional comments: PEG tube + - Extremities Exam Extremities exam: Absent: calf tenderness, pedal edema, tenderness - Neurological Exam Neurological exam: Present: alert, oriented X3 - Psychiatric Psychiatric exam: Present: normal affect, normal mood Internal Medicine: Result - Labs CBC & Chem 7: 01/10/17 05:24 01/10/17 05:24 Labs: Short CBC 01/10/17 Range/Units 05:24 WBC 6.5 D (4.3-11.1) K/mcL Hgb 10.3 L D (12.9-16.9) g/dL Hct 31.6 L (37.5-50.1) % Plt Count 152 (140-400) K/mcL Neutrophils # 4.5 (1.6-8.9) K/mcL BMP 01/10/17 05:24 Sodium 137 Potassium 3.5 Chloride 108 Carbon Dioxide 23 BUN 13 D Creatinine 0.72 Glucose 91 Calcium 8.0 L Consult Discharge Plan - Plan [facility]: [facility] [[facility] Care Provider[facility] -
[2017-01-10] MEDS: Budesonide/Formoterol 80/4.5 MDI IH SCH (20:20)
[2017-01-11 04:55] LABS: Basophils % 0.5 %; Eosinophils # 0.4 K/mcL (0.0-0.6); Eosinophils % 4.9 %; Hematocrit 35.3 % (37.5-50.1); Hemoglobin 11.7 g/dL (12.9-16.9); Immature Granulocytes % 0.7 % (0-4); Lymphocytes # 1.2 K/mcL (0.6-4.6); Lymphocytes % 16.4 %; Mean Corpuscular HGB Conc 33.1 g/dL (31.6-35.5); Mean Corpuscular Hemoglobin 29.3 pg (28.0-33.3); Mean Corpuscular Volume 88.3 fL (83.0-100.0); Mean Platelet Volume 10.8 fL (9.4-12.4); Monocytes # 0.5 K/mcL (0.0-1.3); Monocytes % 7.1 %; Neutrophils # 5.1 K/mcL (1.6-8.9); Platelet Count 180 K/mcL (140-400); Segmented Neutrophils % 70.4 %
[2017-01-11 04:59] LABS: BUN/Creatinine Ratio 13 (6-26); Blood Urea Nitrogen 9 mg/dL (8-26); Carbon Dioxide 19 mEq/L (19-29); Chloride 110 mEq/L (98-109); Glucose 89 mg/dL (70-99); Magnesium 1.8 mg/dL (1.6-2.6); Osmolality,Calculated 286 (280-300); Potassium 3.7 mEq/L (3.5-4.5); Sodium 139 mEq/L (136-145); eGFR For African Americans > 60 (> 60); eGFR For Non-African Americans > 60 (> 60)
[2017-01-11 05:50] LABS: Platelet Estimate Normal (Normal)
[2017-01-11] MEDS: Pantoprazole 40 MG VIAL IVP SCH (06:01)
[2017-01-11] MEDS: Budesonide/Formoterol 80/4.5 MDI IH SCH (08:07)
[2017-01-11] MEDS: Piperacillin/Tazobactam 3.375 GM in D5% in Water (Mini-Bag+) 100 ML IVPB SCH (09:39)
[2017-01-11] MEDS: Finasteride 5 MG TABLET PO SCH (09:41)
[2017-01-11] MEDS: Lisinopril 20 MG TABLET GTUBE SCH (09:41)
[2017-01-11] MEDS: Cholecalciferol (D-3) 1,000 UNIT TABLET PO SCH (09:41)
[2017-01-11] MEDS: predniSONE 5 MG TABLET GTUBE SCH (09:41)
[2017-01-11] MEDS: GuaiFENesin Liq 200 MG/10 ML UDC GTUBE SCH (09:42)
[2017-01-11] MEDS: Nystatin SUSP 5 ML UD.LIQ PO SCH ×3 (09:42→17:48)
[2017-01-11] MEDS: Fluticasone Propionate Nasal 50 MCG/SPRAY BOTTLE NS SCH (10:13)
[2017-01-11] MEDS ORDERED: *HR* FentaNYL (PF) 100 MCG/2 ML VIAL ONE (13:38)
[2017-01-11] MEDS ORDERED: *HR* Midazolam HCl 5 MG/5 ML VIAL IVP ONE (13:38)
[2017-01-11] MEDS ORDERED: Tetracaine/Benzocaine/Butamben 200MG/SPRAY (100SPY/BOT) MM ONE ×2 (13:50→13:51)
[2017-01-11] MEDS ORDERED: Simethicone 40 MG/0.6 ML MLS IR ONE ×2 (13:50→13:51)
[2017-01-11] MEDS ORDERED: *HR* Midazolam HCl 5 MG/5 ML VIAL IVP PRN ×2 (13:50→13:51)
[2017-01-11] MEDS ORDERED: *HR* FentaNYL (PF) 100 MCG/2 ML VIAL IVP PRN ×2 (13:50→13:51)
--- NOTE | 2017-01-11 13:52 | Pre-Sedation Evaluation ---
Pre-sedation evaluation - Pre-sedation checklist Date of procedure: 01/11/17 Procedure: peg tube placement Recent Vitals: Last Vital Signs Temp 97.9 F 01/11/17 10:42 Pulse 105 01/11/17 13:47 Resp 18 01/11/17 13:47 BP 123/70 01/11/17 13:47 Pulse Ox 90 01/11/17 13:47 H&P (including ROS) documented in medical record: Yes Previous reaction to sedatives/anesthetics: No Dietary Status: NPO after Midnight Dentition: dentures removed ASA Classification *see protocol: CLASS III-Severe systemic disease
[2017-01-11] MEDS ORDERED: Sucralfate 1 GM TABLET PO SCH (15:15)
--- NOTE | 2017-01-11 15:40 | Discharge Summary ---
Date of Encounter: 01/11/17 Time of Encounter: 15:33 - Discharge Diagnosis (1) GI bleed Priority: Primary Status: Resolved Qualifiers: GI bleed type/associated pathology: unspecified gastrointestinal hemorrhage type Qualified Code(s): K92.2 - Gastrointestinal hemorrhage, unspecified (2) Acute blood loss anemia Priority: Secondary Status: Resolved (3) Bilateral pneumonia Priority: Primary Status: Acute Qualifiers: Pneumonia type: due to unspecified organism Lung location: lower lobe of lung Qualified Code(s): J18.9 - Pneumonia, unspecified organism (4) Altered mental status Priority: Primary Status: Resolved Qualifiers: Qualified Code(s): R41.82 - Altered mental status, unspecified (5) Esophageal cancer Priority: Secondary Status: Acute Qualifiers: Malignant neoplasm of esophagus location: unspecified location Qualified Code(s): C15.9 - Malignant neoplasm of esophagus, unspecified (6) COPD (chronic obstructive pulmonary disease) Priority: Secondary Status: Chronic Qualifiers: COPD type: emphysema Emphysema type: unspecified Qualified Code(s): J43.9 - Emphysema, unspecified (7) Hypertension Priority: Secondary Status: Acute Qualifiers: Hypertension type: essential hypertension Qualified Code(s): I10 - Essential (primary) hypertension (8) GERD (gastroesophageal reflux disease) Priority: Secondary Status: Acute Qualifiers: Esophagitis presence: esophagitis presence not specified Qualified Code(s) : K21.9 - Gastro-esophageal reflux disease without esophagitis (9) Coronary artery disease Priority: Secondary Status: Acute Qualifiers: Coronary Disease-Associated Artery/Lesion type: [place] artery [place] vs. transplanted heart: [place] heart Associated angina: without angina Qualified Code(s): I25.10 - Atherosclerotic heart disease of [place] coronary artery without angina pectoris - Discharge Medications Prescriptions: Amoxicillin/Clavulanate [Augmentin] 875 mg PO BIDWM 4 Days Home Medications: Aspirin Enteric Coated [Aspirin EC] 81 mg PO DAILY 11/12/15 [History] Calcium Carbonate 650 mg PO DAILY 11/12/15 [History] Clopidogrel [Plavix] 75 mg PO DAILY 11/12/15 [History] Finasteride [Proscar] 5 mg PO DAILY 11/12/15 [History] PredniSONE [Fiona] 5 mg PO DAILY 11/12/15 [History] traMADol [Ultram] 100 mg PO TID 11/12/15 [History] Albuterol Neb [Proventil Neb] 2.5 mg IH TID 12/17/15 [History] Bisacodyl [Dulcolax] 5 mg PO DAILY PRN 12/17/15 [History] Omeprazole/Sodium Bicarbonate [Zegerid 20 mg Packet] 1 pack PO DAILY 12/17/15 [ History] Budesonide/Formoterol 160/4.5 [Symbicort 160/4.5] 2 puff IH BIDR 01/09/17 [ History] Ferrous Sulfate Oral Soln 220 mg PO BID 01/09/17 [History] Ondansetron ODT [Zofran ODT] 4 mg SL Q8HR PRN 01/09/17 [History] Simvastatin [Zocor] 20 mg PO HS 01/09/17 [History] Tamsulosin [Flomax] 0.4 mg PO DAILY 01/09/17 [History] Acetaminophen [Tylenol Susp] 650 mg GTUBE Q6HR PRN 01/11/17 [Rx] Amoxicillin/Clavulanate [Augmentin] 875 mg PO BIDWM 4 Days 01/11/17 [Rx] Lisinopril [Zestril] 40 mg GTUBE DAILY tab 01/11/17 [Rx] Sucralfate [Carafate] 1 gm PO TID tab 01/11/17 [Rx] Allergies/Adverse Reactions: 3 Allergy/AdvReac Type Severity Reaction Status Date / Time No Known Allergies Allergy Verified 01/08/17 16:23 Procedures/tests Complete & Pending: Procedures Performed prior 72 hours Category Date Time Status CT head/brain wo con [CT] Stat Cat Scan 01/09/17 12:00 Completed EV echocardiogram Routine Y 01/09/17 02:33 Completed Date of admission: 01/08/17 22:57 [facility] physician[facility] Consults: 01/09/17 12:08 Consult to Gastroenterology [CONS] Routine Consulting Provider: Gastroenterology Andressa Reason for Consult: h/o esophageal cancer, s/p radiation therapy has dysphagia and Hematemesis Call Completed: Yes 01/10/17 08:18 Consult to Physical Therapy [CONS] Routine Comment: Evaluate, develop and implement POC Reason for Consult: discharge planning OT [Consult to Occupational Therapy] [CONS] Routine Comment: Evaluate, develop and implement POC Reason for Consult: discharge planning 01/10/17 14:22 Consult to Speech Therapy [CONS] Routine Comment: Evaluate, develop and implement POC Reason for Consult: swallow evaluation Call Completed: No - Patient Status Disposition: Transfer SNF Condition: Good Overall status at discharge: patient is back to baseline - Discharge Instructions Follow Up With: [facility] [Outside] Anastacia Sanchez MD [Partnered Physician] - Additional Instructions: Need to f/u with PCP in one week Need to f/u GI Dr. Sanchez in 1-2 weeks Cont tube feedings as before boluses 4 times a day - Diet and Activity Activity: increase activity as tolerated Diet: other Hospital course: Mr. Garcia is a 81 year old male with past medical history of esophageal cancer with recent radiation therapy to his esophagus 3 months ago. Patient family states that patient has not felt like eating for the past 2 days and is required to take 4 cans of ECAL daily but he has taken only 2 cans.. Patient would indicate that it hurts in his chest. Patient's states that patient vomited black fluid earlier today. Patient received his medications to include iron pill which normally looks dark. Patient currently has dark fluid in his PEG tube believed to be possible coffee-ground emesis. Pt was admitted in the hospital and held his tube feedings. Monitored his Hb closely. His HB dropped down to 10.3, but came back to 11.7 today. He does not have any more hematemesis. He was seen by GI who performed EGD today. EGD showed Malignant appearing Esophageal stenosis. Recommend carafate and PPI for now. GI also talked to the pt's family about Metal stent in future. Pt is going to f/u with them as an out pt closely. He did have speech eval done who recommend full liquid diet only. So at this point we resumed his tube feedings and liquid diet. Pt has been tolerating both well. He does have b/l lung infiltrates, mostly gastric secretion aspiration pneumonia. Recommend to finish 7 days abx course. Pt was evaluated by PT / OT who recommend ECF placement. So will d/c him to ECF in stable condition today. Talked to the pt's family at bed side and explained to them about current care. - Time Spent with Patient Total time spent providing and/or coordinating discharge services: Greater than 30 minutes (Spent 45 minutes on this patient's discharge summary due to complex medical problems and patient needed a lot of education regarding discharge instructions) - Constitutional Vitals: Temp Pulse Resp BP Pulse Ox 98.3 F 80 22 101/63 98 01/11/17 14:45 01/11/17 14:45 01/11/17 14:45 01/11/17 14:45 01/11/17 14:45 General appearance: Present: A&O X 2, no acute distress - Head Head exam: Present: atraumatic, normal inspection - Respiratory Respiratory exam: Present: decreased breath sounds, wheezes. Absent: rales, respiratory distress, rhonchi - Cardiovascular Cardiovascular exam: Present: RRR, +S1, +S2. Absent: diastolic murmur, gallop, rubs, systolic murmur - GI/Abdominal GI/Abdominal exam: Present: normal bowel sounds, soft. Absent: rebound, rigid, tenderness Additional comments: PEG tube + - Extremities Exam Extremities exam: Absent: calf tenderness, pedal edema, tenderness - Neurological Exam Neurological exam: Present: alert, oriented X3 - Psychiatric Psychiatric exam: Present: normal affect, normal mood - VTE Documentation of Mechanical Device: Intermittent pneumatic compression device
--- NOTE | 2017-01-11 16:00 | Physician Discharge Referral ---
[facility] Referral Info Transfer To: F Provider in Charge after Transfer: PCP Institutional Level of Care: Skilled - Diagnosis (1) GI bleed Status: Resolved (2) Acute blood loss anemia Status: Resolved (3) Bilateral pneumonia Status: Acute (4) Altered mental status Status: Resolved (5) Esophageal cancer Status: Acute (6) COPD (chronic obstructive pulmonary disease) Status: Chronic (7) Hypertension Status: Acute (8) GERD (gastroesophageal reflux disease) Status: Acute (9) Coronary artery disease Status: Acute - Transfer Medications Prescriptions: Amoxicillin/Clavulanate [Augmentin] 875 mg PO BIDWM 4 Days Home Medications: Aspirin Enteric Coated [Aspirin EC] 81 mg PO DAILY 11/12/15 [History] Calcium Carbonate 650 mg PO DAILY 11/12/15 [History] Clopidogrel [Plavix] 75 mg PO DAILY 11/12/15 [History] Finasteride [Proscar] 5 mg PO DAILY 11/12/15 [History] PredniSONE [Fiona] 5 mg PO DAILY 11/12/15 [History] traMADol [Ultram] 100 mg PO TID 11/12/15 [History] Albuterol Neb [Proventil Neb] 2.5 mg IH TID 12/17/15 [History] Bisacodyl [Dulcolax] 5 mg PO DAILY PRN 12/17/15 [History] Omeprazole/Sodium Bicarbonate [Zegerid 20 mg Packet] 1 pack PO DAILY 12/17/15 [ History] Budesonide/Formoterol 160/4.5 [Symbicort 160/4.5] 2 puff IH BIDR 01/09/17 [ History] Ferrous Sulfate Oral Soln 220 mg PO BID 01/09/17 [History] Ondansetron ODT [Zofran ODT] 4 mg SL Q8HR PRN 01/09/17 [History] Simvastatin [Zocor] 20 mg PO HS 01/09/17 [History] Tamsulosin [Flomax] 0.4 mg PO DAILY 01/09/17 [History] Acetaminophen [Tylenol Susp] 650 mg GTUBE Q6HR PRN 01/11/17 [Rx] Amoxicillin/Clavulanate [Augmentin] 875 mg PO BIDWM 4 Days 01/11/17 [Rx] Lisinopril [Zestril] 40 mg GTUBE DAILY tab 01/11/17 [Rx] Sucralfate [Carafate] 1 gm PO TID tab 01/11/17 [Rx] Allergies/Adverse Reactions: 3 Allergy/AdvReac Type Severity Reaction Status Date / Time No Known Allergies Allergy Verified 01/08/17 16:23 - Respiratory Orders Smoking Cessation: Smoking cessation has been advised. For more information, call the [place] [facility] Quit Line at 1-903-YWQT-NOW. - Diet Orders House Supplement per Dietary: full liquid diet only Tube Feedings (type/amount/rate): boluses 4 times a day Flush Tube (type/amount/frequency): 150cc Q6hr CERTIFICATION: I certify that the transfer of the above named patient to an Extended Care Facility is necessary for the continuing treatment of the diagnosis listed. The above information is true and accurate reflection of patient's current condition. Confidential - Redisclosure prohibited without a patient's written consent.
[2017-01-11 16:15] VITALS: BP 139/75
== END 2017-01-11 18:39 | DRG 377 ==
LOC: 3ANU 16:20 → EMEROO 16:20 → 3ANU 20:19 → SUATTDRO 22:57
PROVIDERS: ADMIT Internal Medicine; ATTEND Family Medicine